=== PATIENT | male | born 1960 | race Caucasian/White ===

== ENCOUNTER 2020-08-18 14:09 | Emergency (ER) | payer OTHER ==
[~2020-08-18] VITALS: Ht 177.8 cm; Wt 100.7 kg
[2020-08-18] MEDS ORDERED: ZANAFLEX4 M1 PO (14:37)
--- NOTE | 2020-08-20 18:04 | EKG ---
[facility] [address] [facility] [place], [place] [address] Signed Normal sinus rhythm Normal ECG Confirmed by CIRA SAVAGE MD ([id number]) on 08/20/2020 6:04:53 PM Electronically Signed By: CIRA SAVAGE MD 08/20/20 1804 PATIENT NAME: ALONZO SUMNER Electrocardiogram DATE OF : 56 PHYSICIAN: CIRA SAVAGE MD REPORT #: [id number] REPORT IS CONFIDENTIAL AND NOT TO BE RELEASED WITHOUT AUTHORIZATION
== END 2020-08-18 16:55 | disposition home or self-care (01) ==
LOC: ED 14:09
DX: R07.89 Other chest pain (principal); R10.13 Epigastric pain; R11.0 Nausea; F17.200 Nicotine dependence, unspecified, uncomplicated
CPT/HCPCS: 71046; 80053; 83690; 83735; 84484; 85025; 93005; 93010; 99285-25